=== PATIENT | male | born 1950 | race Caucasian/White ===

== ENCOUNTER → 2024-01-02 | Outpatient (REF) | payer MEDICARE, OTHER ==
[~2024-01-02] MED LIST: AMBI10TA PO; AMIT50TA PO; ASPI81TA86 PO; ATEN100T PO; ATOR1TAB21 PO; BUTR10DI TD; CELE1CAP4 PO; CHEL50TA PO; CYCL-707 PO; DOXY150C3 PO; FISH500C PO; FLOM0.4C39 PO; LANS30CA PO; MULTIVITAMIN PO; NITR4TASL SL; OLME20TA55 PO; TRAM50TA2 PO; TYLE650T25 PO; VITA10006 PO; XANA0.25 PO; [UNRECOGNIZED DRUG - OTHER] PO
== END ==
LOC: M SFHCDERM 18:35
PROVIDERS: ATTEND Physician Assistant
DX: L57.0 Actinic keratosis (principal); D04.61 Carcinoma in situ of skin of right upper limb, including shoulder